=== PATIENT | male | born 1975 | race Caucasian/White ===

== ENCOUNTER 2017-12-03 09:30 | Emergency (ER) | payer OTHER ==
[~2017-12-03] VITALS: Ht 167.6 cm; Wt 84.8 kg
[2017-12-03 09:32] VITALS: Ht 167.6 cm; Wt 84.8 kg
[2017-12-03 12:47] VITALS: BP 130/82
== END 2017-12-03 12:47 | disposition home or self-care (01) ==
LOC: ED 09:30
DX: S62.633A Displaced fracture of distal phalanx of left middle finger, initial encounter for closed fracture (principal); S61.213A Laceration without foreign body of left middle finger without damage to nail, initial encounter; W26.8XXA Contact with other sharp object(s), not elsewhere classified, initial encounter; Y93.89 Activity, other specified; Y99.8 Other external cause status; Y92.89 Other specified places as the place of occurrence of the external cause
CPT/HCPCS: 90715; J3490